=== PATIENT | female | born 1985 | race Caucasian/White ===

== ENCOUNTER 2016-09-13 22:32 | Emergency (ER) | payer SELFPAY ==
[~2016-09-13] VITALS: Ht 162.6 cm; Wt 54.5 kg
[~2016-09-13 22:32] MED LIST: BUTA1CAP39 PO; CIPR500T4 PO; FAMO-18 PO; IBUP800T25 PO; ONDA4TAB35 PO; SODI44SP11 NS; ZOF8 PO
[2016-09-13 22:33] VITALS: Ht 162.6 cm; Wt 54.5 kg
[2016-09-14] MEDS ORDERED: ALBUTEROL 0.5% (NEB) 2.5 MG/0.5 ML AMP HHN STA (00:25)
--- NOTE | 2016-09-14 00:27 | ERD ---
ER Documentation Chief Complaint Date/Time DATE: 09/14/16 TIME: 00:20 Chief Complaint cough congestion for past 5 days HPI 31 y/o female presents to ED for productive cough and congestion for less than a week. Also stated that she felt like she had a fever this morning but didn't take his temperature. Denies headache, loss of consciousness, dizziness, blurry vision, changes in vision, photophobia, facial pain, ear pain, throat pain, difficulty swallowing, neck pain, shoulder pain, chest pain, hemoptysis, abdominal pain, back pain, loss of appetite, nausea, vomiting, hematochezia, diarrhea, constipation, urinary symptoms, , the possibility of being , bladder and bowel incontinences, extremity weakness, extremity tenderness, numbness or tingling sensation, difficulty walking, recent travel, recent exposure to illness, recent antibiotic use in the last 3 months, chills. Allergy: NKA PMH: NKA Family medical history: NKA AO LMP: 08/25/2016 Medications: Denies Surgery: Denies Primary Social History: Denies Denies smoking, use of alcohol, use of illegal drugs. ROS All systems reviewed and are negative except as per history of present illness. Medications Home Meds Active Scripts Albuterol Sulfate* (Proair HFA*) 8.5 Gm Hfa.aer.ad, 2 PUFF INH Q4, #1 INHALER Prov:YARIEL SELF 09/14/16 Acetaminophen* (Tylophen*) 500 Mg Capsule, 1 CAP PO Q6H Y for PAIN AND OR ELEVATED TEMP, #20 CAP Prov:YARIEL SELF 09/14/16 Amoxicillin/Potassium Clav (Amox-Clav 875-125 mg Tablet) 875-125 mg Tab, 1 TAB PO BID for 7 Days, #14 TAB Prov:YARIEL SELF F 09/14/16 Ciprofloxacin Hcl* (Ciprofloxacin Hcl*) 500 Mg Tablet, 500 MG PO BID for 3 Days , TAB Prov:MUKUND GILL PA-C 10/24/15 Sodium Chloride (Saline Nasal [place]) 45 Ml [place], 2 SPR NS Q2H, #1 BOT Prov:JEANNIE SAWYER NP 07/12/15 Ibuprofen* (Motrin*) 800 Mg Tab, 800 MG PO Q6H Y for PAIN AND OR ELEVATED TEMP, #30 TAB Prov:JEANNIE SAWYER SPORTS MANAGEMENT PROFESSOR 07/12/15 Ondansetron Hcl* (Zofran* ODT) 4 mg -ODT Tab.disper, 4 MG PO Q6 Y for NAUSEA AND /OR VOMITING, #10 TAB Prov:SILVERIOJEANNIE Michelle Rasheeda. SPORTS MANAGEMENT PROFESSOR 07/12/15 Augccjczueaud-Jxqhrggzab-Vphqdcdc-Codeine* (Fioricet w/ Codeine*) [id number]- 30MG Capsule, 1 CAP PO Q6H Y for PAIN LEVEL 1-5, #10 CAP Prov:SILVERIOJEANNIE Rasheeda. SPORTS MANAGEMENT PROFESSOR 07/12/15 Ondansetron Hcl* (Zofran* ODT) 8 mg -ODT Tab.disper, 8 MG PO Q6 Y for NAUSEA AND /OR VOMITING, #14 TAB Prov:MUKUND GILL PA-C 01/25/15 Xtujfwkcvzgcz-Hqyvkjfgbt-Czuoqvyh-Codeine* (Fioricet w/ Codeine*) [id number]- 30MG Capsule, 1 CAP PO Q6H Y for PAIN LEVEL 1-5, #14 CAP Prov:MUKUND GILL PA-C 01/25/15 Reported Medications Famotidine* (Pepcid*) 20 Mg Tablet, 20 MG PO DAILY, TAB 04/22/14 Allergies Allergies: Coded Allergies: No Known Drug Allergy (Verified Allergy, Unknown, 06/02/14) PMhx/Soc Medical and Surgical Hx: pt denies Medical Hx, pt denies Surgical Hx History of Surgery: No Anesthesia Reaction: No Hx Neurological Disorder: No Hx Respiratory Disorders: No Hx Cardiac Disorders: No Hx Psychiatric Problems: No Hx Miscellaneous Medical Probl: No Hx Alcohol Use: No Hx Substance Use: No Hx Tobacco Use: No Smoking Status: Never smoker Physical Exam Vitals Vital Signs Date Time Temp Pulse Resp B/P Pulse Ox O2 Delivery O2 Flow Rate FiO2 09/14/16 01:26 99.8 101 20 119/81 98 Room Air 09/14/16 00:42 85 18 98 21 09/13/16 22:33 99.2 99 18 132/80 99 Physical Exam CONSTITUTIONAL: Well-appearing; well-nourished; in no apparent distress. HEAD: Normocephalic; atraumatic. EYES: Conjunctiva clear, sclera non-icteric, EOM intact. PERRL Ears: Hearing intact. EACs clear, TMs non-bulging, non-inflamed, translucent & mobile, ossicles normal appearance, No obstructions, no erythema, no discharges Nose: No obstructions. No polyps. No external lesions. Mucosa non-inflamed. No external lesions, septum and turbinates normal. No rhinorrhea. No discharges. Frontal sinus is tender to palpation. Maxillary sinus is tender to palpation. MOUTH: Moist mucous membranes, no lesion, no obstructions, no vesicles, no thrush, patent airway Throat: Uvula in midline. Right tonsil is +2 with erythema, no exudate. Left tonsil is +2 with erythema, no exudate. Tolerating secretions well. Good gag reflex. Patent airway. Neck: Supple, without lesions, bruits, or adenopathy. No mass. Thyroid non- enlarged and non-tender to palpation. CHEST: Symmetrical chest. Respirations even and not labored. No retractions noted. CARDIOVASCULAR: Normal S1, S2. RRR. No murmurs, gallops. RESPIRATORY: Normal chest excursion with respiration; breath sounds clear and equal bilaterally; no wheezes, rhonchi, or rales. Breathing even and unlabored. Speaking in clear, full, and complete sentences w/ ease. ABDOMEN: Normal bowel sounds normal. Soft, round, non-distended, non-guarding, no tenderness, no rebound, no organomegaly, no masses, no pulsating abdominal mass. No hernia. No peritoneal signs. : No CVA tenderness. BACK: Symmetrical shoulder. Spine is midline without deformity, tenderness. No evidence of trauma or deformity. PELVIS: Stable pelvis. No evidence of trauma or deformity. MUSCULOSKELETAL: Normal gait and station. No misalignment, asymmetry, crepitation, defects, tenderness, masses, effusions, decreased range of motion, instability, atrophy or abnormal strength or tone in the head, neck, spine, ribs , pelvis or extremities. No calf tenderness. NEUROVASCULAR: Distal pulses are present. Pedal pulse are present, equal, and normal. Capillary refills are < 2 seconds. NEUROLOGIC: Alert and oriented x4. Speaks full and clear sentences. Cranial Nerves II-XII normal. Sensation to pain, touch, and proprioception normal. Grossly unremarkable. No neurologic deficits. Romberg test is negative. PSYCHOLOGICAL: The patients mood and manner are appropriate. No hallucinations , delusions. Not SI. Not HI. Has the capacity to decide for self SKIN: Normal for age and ethnicity; warm; dry; good turgor; no apparent lesions or exudates. No rashes, hives, discoloration. Intact. Results 24 hrs Current Medications Medications (Trade) Dose Ordered Sig/Amanda Route PRN Reason Start Time Stop Time Status Last Admin Dose Admin Acetaminophen (Tylenol Tab) 650 mg ONCE ONCE PO 09/14/16 00:30 09/14/16 00:31 DC 09/14/16 00:35 Albuterol (Proventil 0.5% (Neb)) 5 mg ONCE STAT HHN 09/14/16 00:25 09/14/16 00:27 DC 09/14/16 00:42 Ipratropium [place] (Atrovent 0.02% (Neb)) 0.5 mg ONCE ONCE HHN 09/14/16 00:30 09/14/16 00:31 DC 09/14/16 00:42 Procedures/MDM Examination: Please see physical examination. Treatment: Tylenol. Albuterol and Atrovent. Re-evaluation: Breathing has improved. Lung sounds are clear to auscultation. Consultation: None Differential diagnosis: PNA versus bronchitis versus sinusitis Medical decision makin31 y/o female presents to ED for productive cough and congestion for less than a week. Also stated that she felt like she had a fever this morning but didn't take his temperature. Patient's complain, my physical finding are consistent with my final diagnosis of acute bronchitis and sinusitis. Medications prescribed are the following: Augmentin. Pro-air MDI. Tylenol. Patient and family member are made aware of the side effects and adverse reactions of the medications prescribed. Instructed on when to seek emergent and medical attention in case allergic/anaphylactic reactions or severe side effects and or adverse reactions to medications. Patient and family member verbalized understanding. Patient instructed Instructed to follow-up with his PCP in 24-48 hours. Verbalized understanding and agreed with follow-up care. Instructed to Call 911 for chest pain, shortness of breath. Advised to come back here in ED as soon as possible for severity of symptoms which includes but not limited to: any new symptoms; shortness of breath/difficulty of breathing; cardiovascular changes; severe gastrointestinal symptoms; signs and symptoms of bleeding and or infection; signs of compartment syndrome/neurovascular changes; neurological changes/deficits. Patient and family member verbalized understanding. Upon discharge, patient is alert and oriented x 4, speaks full and clear sentences, denies pain, has no neurological deficits, has no neurovascular deficits, difficulty of breathing. Breathing even and unlabored. Lung sounds are clear to auscultation. Not in distress. Appears comfortable. Ambulatory with steady gait. Appears satisfied with care provided here in ED. Departure Diagnosis: Primary Impression: Bronchitis Additional Impressions: Sinusitis, acute frontal Recurrence: not specified as recurrent Qualified Code: J01.10 - Acute frontal sinusitis, recurrence not specified Sinusitis, acute maxillary Recurrence: not specified as recurrent Qualified Code: J01.00 - Acute maxillary sinusitis, recurrence not specified Condition: Good Additional Instructions: Follow-up with PCP in the next 24-48 hours. Patient verbalized understanding. Patient agreed with follow-up care. YARIEL SELF Sep 14, 2016 00:27
[2016-09-14] MEDS ORDERED: ACETAMINOPHEN 325 MG TAB PO ONE (00:30)
[2016-09-14] MEDS ORDERED: IPRATROPIUM (NEB) 0.5 MG/2.5 ML AMP HHN ONE (00:30)
[2016-09-14] MEDS ORDERED: AMOX1TAB10 PO (01:13)
[2016-09-14] MEDS ORDERED: ALBU8.5H3 INH (01:13)
[2016-09-14] MEDS ORDERED: ACET500C5 PO (01:13)
[2016-09-14 01:26] VITALS: BP 119/81; PULSE 101; RESP 20; TEMP 99.8
== END 2016-09-14 01:28 | disposition home or self-care (01) ==
LOC: FTE 22:32
DX: J20.9 Acute bronchitis, unspecified (principal); J01.10 Acute frontal sinusitis, unspecified; J01.00 Acute maxillary sinusitis, unspecified
CPT/HCPCS: 94664

== ENCOUNTER 2016-12-23 08:53 | Emergency (ER) | payer MEDICAID ==
[~2016-12-23] VITALS: Ht 162.6 cm; Wt 55.5 kg
[~2016-12-23 08:53] MED LIST changes: +ACET500C5 PO; +ALBU8.5H3 INH; +AMOX1TAB10 PO
[2016-12-23 09:04] VITALS: Ht 162.6 cm; Wt 55.5 kg
[2016-12-23] MEDS ORDERED: SOD CHLORIDE 0.9% 1,000 ML IV STA (09:19)
[2016-12-23] MEDS ORDERED: morphine 4 MG/ML VIAL IV STA (09:19)
[2016-12-23] MEDS ORDERED: ONDANSETRON 4 MG INJ IV STA (09:19)
--- NOTE | 2016-12-23 09:28 | ERD ---
ER Documentation Chief Complaint Date/Time DATE: 12/23/16 TIME: 09:23 Chief Complaint RIGHT SIDE AP W/NAUSEA X4 DAYS HPI This is a 31-year-old female presenting to the emergency department complaining of right sided abdominal pain that radiates to the left abdomen for the past 4 days. States it is mostly in the right lower quadrant. Patient states the pain is intermittent, rating it 8-10 out of 10. She admits to having associated nausea with it, she states that eating makes it worse. Denies fevers patient denies any vomiting, diarrhea. She states her last bowel movement was yesterday normal. Patient has tried [place] and ibuprofen yesterday without any relief. She denies taking any medications today. She states her last menstrual period was couple weeks ago. Patient states that she was seen at [facility] a year ago and they have told her that she had a hematoma on her liver. She denies any surgeries. ROS All systems reviewed and are negative except as per history of present illness. Medications Home Meds Active Scripts Ondansetron (Ondansetron Odt) 4 Mg Tab.rapdis, 4 MG PO Q6H Y for NAUSEA AND/OR VOMITING, #10 TAB Prov:ELENA NUGENT PA-C 12/23/16 Ibuprofen* (Ibuprofen*) 400 Mg Tablet, 400 MG PO Q6H Y for PAIN, #30 TAB Prov:ELENA NUGENT PA-C 12/23/16 Famotidine* (Famotidine*) 20 Mg Tablet, 20 MG PO DAILY, #14 TAB Prov:ELENA NUGENT PA-C 12/23/16 Albuterol Sulfate* (Proair HFA*) 8.5 Gm Hfa.aer.ad, 2 PUFF INH Q4, #1 INHALER Prov:YARIEL SELF 09/14/16 Acetaminophen* (Tylophen*) 500 Mg Capsule, 1 CAP PO Q6H Y for PAIN AND OR ELEVATED TEMP, #20 CAP Prov:YARIEL SELF 09/14/16 Amoxicillin/Potassium Clav (Amox-Clav 875-125 mg Tablet) 875-125 mg Tab, 1 TAB PO BID for 7 Days, #14 TAB Prov:YARIEL SELF 09/14/16 Ciprofloxacin Hcl* (Ciprofloxacin Hcl*) 500 Mg Tablet, 500 MG PO BID for 3 Days , TAB Prov:MUKUND GILL PA-C 10/24/15 Sodium Chloride (Saline Nasal [place]) 45 Ml [place], 2 SPR NS Q2H, #1 BOT Prov:JEANNIE SAWYER REAL ESTATE INVESTOR 07/12/15 Ibuprofen* (Motrin*) 800 Mg Tab, 800 MG PO Q6H Y for PAIN AND OR ELEVATED TEMP, #30 TAB Prov:JEANNIE SAWYER NP 07/12/15 Ondansetron Hcl* (Zofran* ODT) 4 mg -ODT Tab.disper, 4 MG PO Q6 Y for NAUSEA AND /OR VOMITING, #10 TAB Prov:JEANNIE SAWYER NP 07/12/15 Csbnxdjgukbvi-Ktoevybkty-Gjhjvveg-Codeine* (Fioricet w/ Codeine*) [id number]- 30MG Capsule, 1 CAP PO Q6H Y for PAIN LEVEL 1-5, #10 CAP Prov:JEANNIE SAWYER NP 07/12/15 Ondansetron Hcl* (Zofran* ODT) 8 mg -ODT Tab.disper, 8 MG PO Q6 Y for NAUSEA AND /OR VOMITING, #14 TAB Prov:MUKUND GILL PA-C 01/25/15 Onwiypnegzyky-Xwwiebldyg-Ziujboiy-Codeine* (Fioricet w/ Codeine*) [id number]- 30MG Capsule, 1 CAP PO Q6H Y for PAIN LEVEL 1-5, #14 CAP Prov:MUKUND GILL PA-C 01/25/15 Reported Medications Famotidine* (Pepcid*) 20 Mg Tablet, 20 MG PO DAILY, TAB 04/22/14 Allergies Allergies: Coded Allergies: No Known Drug Allergy (Verified Allergy, Unknown, 06/02/14) PMhx/Soc Medical and Surgical Hx: pt denies Medical Hx, pt denies Surgical Hx History of Surgery: No Anesthesia Reaction: No Hx Neurological Disorder: No Hx Respiratory Disorders: No Hx Cardiac Disorders: No Hx Psychiatric Problems: No Hx Miscellaneous Medical Probl: No Hx Alcohol Use: No Hx Substance Use: No Hx Tobacco Use: No Physical Exam Vitals Vital Signs Date Time Temp Pulse Resp B/P Pulse Ox O2 Delivery O2 Flow Rate FiO2 12/23/16 09:04 98.1 77 20 112/67 99 Physical Exam GENERAL: well-developed/well-nourished, in no apparent distress, non-toxic appearing HENT: NC/AT, moist mucous membranes EYES: Conjunctiva normal NECK: Supple, no lymphadenopathy PULM: CTA bilaterally, no rales, rhonchi, or wheezing heard CV: Normal S1S2, RRR, good capillary refill GI: Soft, non-distended, tender to palpation in right lower quadrant, tender palpation all quadrants, patient was tearful when I palpated her abdomen Normal bowel sounds, no masses or organomegaly felt on exam No gross peritonitis, no bruits Negative Rovsing, negative Gasca, + McBurney's point, Negative CVAT BACK: No masses EXT: No clubbing, cyanosis, or edema NEURO: Alert and Orientated SKIN: Intact, normal turgor PSYCH: Normal mood and mentation Result Diagram: 12/23/1692412/23/1625 Results 24 hrs Laboratory Tests Test 12/23/16 09:20 12/23/16 09:25 Urine Color LT. YELLOW Urine Clarity CLEAR Urine pH 6.0 Urine Specific [place] 1.015 Urine Ketones NEGATIVE Urine Nitrite NEGATIVE Urine Bilirubin NEGATIVE Urine Urobilinogen 0.2 E.U./dL Urine Leukocyte Esterase NEGATIVE Urine Hemoglobin NEGATIVE Urine Glucose NEGATIVE% Urine Total Protein NEGATIVE White Blood Count 7.110^3/ul Red Blood Count 5.0210^6/ul Hemoglobin 13.9g/dl Hematocrit 43.5% Mean Corpuscular Volume 86.7fl Mean Corpuscular Hemoglobin 27.7pg Mean Corpuscular Hemoglobin Concent 32.0g/dl Red Cell Distribution Width 13.2% Platelet Count 44980^3/UL Mean Platelet Volume 9.1fl Neutrophils % 61.0% Lymphocytes % 30.1% Monocytes % 5.1% Eosinophils % 3.1% Basophils % 0.4% Nucleated Red Blood Cells % 0.0/100WBC Neutrophils # 4.310^3/ul Lymphocytes # 2.110^3/ul Monocytes # 0.410^3/ul Eosinophils # 0.210^3/ul Basophils # 0.010^3/ul Nucleated Red Blood Cells # 0.010^3/ul Sodium Level 142mmol/L Potassium Level 3.9mmol/L Chloride Level 105mmol/L Carbon Dioxide Level 28mmol/L Anion Gap 13 Blood Urea Nitrogen 11mg/dl Creatinine 0.66mg/dl Glucose Level 83mg/dl Calcium Level 9.2mg/dl Total Bilirubin 0.2mg/dl Direct Bilirubin 0.00mg/dl Indirect Bilirubin 0.2mg/dl Aspartate Amino Transf (AST/SGOT) 26IU/L Alanine Aminotransferase (ALT/SGPT) 43IU/L Alkaline Phosphatase 77IU/L Total Protein 7.8g/dl Albumin 4.7g/dl Globulin 3.10g/dl Albumin/Globulin Ratio 1.51 Lipase 65U/L Current Medications Medications (Trade) Dose Ordered Sig/Amanda Route PRN Reason Start Time Stop Time Status Last Admin Dose Admin Sodium Chloride (NS) 1,000 ml @ 1,000 mls/hr Q1H STAT IV 12/23/16 09:19 12/23/16 10:18 DC 12/23/16 09:46 Morphine Sulfate (morphine) 4 mg ONCE STAT IV 12/23/16 09:19 12/23/16 09:21 DC 12/23/16 09:45 Ondansetron HCl (Zofran Inj) 4 mg ONCE STAT IV 12/23/16 09:19 12/23/16 09:21 DC 12/23/16 09:45 Procedures/MDM This is a 31-year-old female presenting to the emergency department complaining of right sided abdominal pain that radiates to the left abdomen associated with nausea for the past 4 days. Differentials include but not limited to gastritis , liver masses, gastroenteritis, ovarian cyst. IV access is established. Lab work was drawn. CBC did not show any evidence of leukocytosis or anemia. CMP did not show any evidence of renal, liver, or electrolyte abnormalities. Lipase was normal. UA did not show any evidence of hemoglobin or urinary tract infection. Ultrasound of the gallbladder did not reveal any cholelithiasis. CT of the abdomen and pelvis was done and there is a liver mass which has been noted on patient's last CT a year ago, it recommends for her to do an MRI and CT triple phase of the liver . This can be done as an outpatient. Patient's pain has been stabilized in the ED. She is stable for discharge for home with close follow-up with the primary care physician. I discussed with her to return to the ER for any worsening sinus symptoms. She understands and agrees with this plan Gallbladder ultrasound: 3.7 cm soft tissue mass in the right lobe of the liver, previously measured 3.[address] from 2016. Further characterization with a triple phase liver CT is recommended. No evidence of gallstones. Right kidney not visualized. CT abd pelvis without contrast: Slightly enlarging incomplete characterized hypodense mass in the right lobe of the liver. Differential diagnosis includes hemangioma, hepatic adenoma, SMA each, hepatoma, among other possibilities. Further evaluation with an MRI of the liver or CT triple phase is recommended. Tiny subpleural nodule in the right lower lobe of the lung. Possible right ovarian cyst . Small cystic structure in the left lower quadrant may be related to the left ovary. Markedly atrophic right kidney with compensatory hypertrophy of the left kidney. Departure Diagnosis: Primary Impression: Abdominal pain Additional Impressions: Right ovarian cyst Nausea Condition: Stable ELENA NUGENT PA-C Dec 23, 2016 09:28
[2016-12-23 09:47] LABS: ADD SCAN DIFF NO
[2016-12-23 09:49] LABS: BASOPHILS % 0.4 % (0.0-2.0); EOSINOPHILS # 0.2 10^3/ul (0.0-0.5); EOSINOPHILS % 3.1 % (0.0-7.0); HEMATOCRIT 43.5 % (37.0-47.0); HEMOGLOBIN 13.9 g/dl (12.0-16.0); LYMPHOCYTES # 2.1 10^3/ul (0.8-2.9); LYMPHOCYTES % 30.1 % (15.0-51.0); MEAN CORPUSCULAR HEMOGLOBIN 27.7 pg (29.0-33.0); MEAN CORPUSCULAR VOLUME 86.7 fl (82.0-101.0); MEAN PLATELET VOLUME 9.1 fl (7.4-10.4); MONOCYTE # 0.4 10^3/ul (0.3-0.9); MONOCYTES % 5.1 % (0.0-11.0); NEUTROPHIL # 4.3 10^3/ul (1.6-7.5); PLATELET COUNT 258 10^3/UL (140-415); RED BLOOD COUNT 5.02 10^6/ul (4.20-5.40); RED CELL DISTRIBUTION WIDTH 13.2 % (11.5-14.5); WHITE BLOOD COUNT 7.1 10^3/ul (4.8-10.8)
[2016-12-23 09:56] LABS: ADD UMIC NO; URINE BILIRUBIN (Dip) NEGATIVE (NEGATIVE); URINE BLOOD (Dip) NEGATIVE (NEGATIVE); URINE COLOR LT. YELLOW (YELLOW); URINE GLUCOSE (Dip) NEGATIVE (NEGATIVE); URINE KETONES (Dip) NEGATIVE (NEGATIVE); URINE LEUKOCYTE ESTERASE (Dip) NEGATIVE (NEGATIVE); URINE NITRITE (Dip) NEGATIVE (NEGATIVE); URINE TOTAL PROTEIN (Dip) NEGATIVE (NEGATIVE); URINE UROBILINOGEN (Dip) 0.2 E.U./dL (0.1-1.0)
[2016-12-23 10:13] LABS: ALBUMIN 4.7 g/dl (3.3-4.9); ALBUMIN/GLOBULIN RATIO 1.51; BILIRUBIN,INDIRECT 0.2 mg/dl (0-1.1); BILIRUBIN,TOTAL 0.2 mg/dl (0.2-1.3); CALCIUM 9.2 mg/dl (8.4-10.2); CREATININE 0.66 mg/dl (0.44-1.00); POTASSIUM 3.9 mmol/L (3.5-5.1); TOTAL PROTEIN 7.8 g/dl (6.1-8.1)
--- NOTE | 2016-12-23 10:31 | RADRPT ---
PROCEDURE: US Abdomen. CLINICAL INDICATION: abdominal pain TECHNIQUE: Multiple real-time images were acquired of the patient's right upper quadrant abdomen a nd retroperitoneum utilizing a high resolution transducer. COMPARISON: 10/24/2015 FINDINGS: There is a large 3.8 x 3.1 cm complex echogenic mass in the right lobe of the liver with a hypoechoi c center. There is no significant increased vascularity within this mass. The liver is normal in size. The liver measures 15 cm in length. The portal vein is patent with norm al direction of flow. No intrahepatic biliary dilatation is seen. No gallstones are identified within the gallbladder. There is no pericholecystic fluid or gallbladd er wall thickening. The common bile duct measures 1.4 mm in maximal dimension. The visualized portions of the pancreas are unremarkable. The tail of the pancreas is not seen. No free fluid is identified. The right kidney is not visualized. RPTAT: AA IMPRESSION: 3.7 cm soft tissue mass in the right lobe of the liver, previously measured 3.[address] from 20 16. Further characterization with a triple phase liver CT is recommended. No evidence of gallstones. Right kidney not visualized. .Edwin Munoz MD, Date Time Electronically viewed and signed by .Edwin Munoz MD, MD on 12/23/2016 10:31 .S/
--- NOTE | 2016-12-23 11:06 | RADRPT ---
PROCEDURE: CT abdomen and pelvis without contrast. CLINICAL INDICATION: Abdominal pain TECHNIQUE: CT scan of the abdomen and pelvis without contrast was performed on the multislice CT s wooju . No intravenous contrast was administered. 3-D sagittal and coronal reformatted images wer e obtained from the axial source images. One or more of the following post reduction techniques were used: - Automated exposure control. - Adjustment of the mA and/or Kv according to patient's size. - Use of iterative reconstruction technique DLP 359 mGycm. CTDI vol 6.19 mGy COMPARISON: CT from 10/24/2015, ultrasound from same day FINDINGS: There is a 3 mm subpleural nodule in the right lower lobe. There is a tiny area of linear scarring in the left lower lobe. Evaluation of the solid organs is limited due to lack of intravenous contrast. There is a slightly enlarging hypodense mass in the right lobe of the liver measuring 4.2 x 3.2 cm i n the current study, compared to 4.0 cm in the prior study. There is no biliary ductal dilatation. The spleen, adrenal glands, pancreas, gallbladder are normal. There is marked atrophy of the right kidney with a tiny amount of residual renal parenchyma noted in the right flank. There is compensatory hypertrophy of the left kidney. There is no evidence of le ft-sided hydronephrosis or kidney stones. The aorta is normal in caliber and there is no ascites or retroperitoneal adenopathy. There is no bowel obstruction. There is a 2.3 cm simple cyst in the right ovary. There is a 1.3 cm cystic structure in the left lo wer quadrant which may be related to the left ovary, slightly increased in size when compared the pr ior study when it measured 1.1 cm. The urinary bladder is normal. No pelvic lymphadenopathy seen. There is no free fluid. The bony pelvis is intact. The appendix is normal. RPTAT: AA IMPRESSION: Slightly enlarging incomplete characterized hypodense mass in the right lobe of the liver. Differen tial diagnosis includes hemangioma, hepatic adenoma, SMA each, hepatoma, among other possibilities. Further evaluation with an MRI of the liver or CT triple phase is recommended. Tiny subpleural nodule in the right lower lobe of the lung. Possible right ovarian cyst . Small cystic structure in the left lower quadrant may be related to t he left ovary. Markedly atrophic right kidney with compensatory hypertrophy of the left kidney. .Edwin Munzo MD, MD Date Time Electronically viewed and signed by .Edwin Munoz MD, on 12/23/2016 11:06 .S/
[2016-12-23] MEDS ORDERED: FAMO20TA18 PO (11:13)
[2016-12-23] MEDS ORDERED: IBUP400T22 PO (11:13)
[2016-12-23] MEDS ORDERED: ONDA4TAB14 PO (11:17)
[2016-12-23 11:35] VITALS: BP 100/66; PULSE 87; RESP 16; TEMP 98.2
== END 2016-12-23 11:51 | disposition home or self-care (01) ==
LOC: FTE 08:53
DX: R10.31 Right lower quadrant pain (principal); R11.0 Nausea; N83.201 Unspecified ovarian cyst, right side
CPT/HCPCS: 74176; 76705; 80053; 81003; 83690; 85025; J2270; J2405; J7030; 36415; 96361; 96374; 96375

== ENCOUNTER 2017-07-14 22:37 | Emergency (ER) | payer SELFPAY ==
[~2017-07-14] VITALS: Ht 162.6 cm; Wt 55.4 kg
[~2017-07-14 22:37] MED LIST changes: -FAMO-18 PO; +FAMO-96 PO; +FAMO20TA18 PO; +IBUP400T22 PO; +ONDA4TAB14 PO
[2017-07-14 23:16] VITALS: Ht 162.6 cm; Wt 55.4 kg
== END 2017-07-15 15:23 | disposition left against medical advice (07) ==
LOC: FTE 22:37
DX: Z53.21 Procedure and treatment not carried out due to patient leaving prior to being seen by health care provider (principal)

== ENCOUNTER 2018-11-19 21:18 | Emergency (ER) | payer MEDICAID ==
[~2018-11-19] VITALS: Ht 157.5 cm; Wt 56.7 kg
[~2018-11-19 21:18] MED LIST changes: -ALBU8.5H3 INH; +ALBU8.5H8 INH; +IBUP-1541 PO; -IBUP400T22 PO; -IBUP800T25 PO; +IBUP800T48 PO
[2018-11-19 21:23] VITALS: Ht 157.5 cm; Wt 56.7 kg
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
[2018-11-19] MEDS ORDERED: METOCLOPRAMIDE 10 MG INJ IV STA (22:10)
[2018-11-19 22:28] VITALS: BP 115/93; PULSE 83; RESP 16
[2018-11-19] MEDS ORDERED: KETOROLAC 30 MG INJ IV STA (22:36)
[2018-11-19] MEDS ORDERED: DIPHENHYDRAMINE 50 MG INJ IV ONE (23:00)
[2018-11-20] MEDS ORDERED: ONDA4TAB8 PO (20:08)
[2018-11-20] MEDS ORDERED: ACET500C5 PO (20:08)
== END 2018-11-19 23:20 | disposition home or self-care (01) ==
LOC: E/R 21:18
DX: T59.91XA Toxic effect of unspecified gases, fumes and vapors, accidental (unintentional), initial encounter (principal)
CPT/HCPCS: 36415; 82803; 96374; 96375; J1200; J1885; J2765; Z7502

== ENCOUNTER 2018-11-20 17:59 | Emergency (ER) | payer MEDICAID ==
[~2018-11-20] VITALS: Wt 55.8 kg
[2018-11-20 18:09] VITALS: BP 120/83; PULSE 78; RESP 18
[2018-11-20] MEDS ORDERED: KETOROLAC 60 MG INJ IM STA (18:51)
[2018-11-20] MEDS ORDERED: ONDANSETRON (ODT) 4 MG TAB ODT STA (18:51)
[2018-11-20] MEDS ORDERED: ACET500C5 PO (20:08)
[2018-11-20] MEDS ORDERED: ONDA4TAB8 PO (20:08)
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
== END 2018-11-20 20:17 | disposition home or self-care (01) ==
LOC: FTE 17:59
DX: T58.91XA Toxic effect of carbon monoxide from unspecified source, accidental (unintentional), initial encounter (principal); F17.210 Nicotine dependence, cigarettes, uncomplicated
CPT/HCPCS: 36415; 81025; 82803; 96372; J1885; Z7502; Z7610

== ENCOUNTER 2019-01-22 14:28 | Emergency (ER) | payer MEDICAID ==
[~2019-01-22] VITALS: Ht 152.4 cm; Wt 57.1 kg
[~2019-01-22 14:28] MED LIST changes: -ALBU8.5H8 INH; -AMOX1TAB10 PO; -BUTA1CAP39 PO; -CIPR500T4 PO; -FAMO-96 PO; -FAMO20TA18 PO; -IBUP-1541 PO; -IBUP800T48 PO; -ONDA4TAB14 PO; -ONDA4TAB35 PO; +ONDA4TAB8 PO; -SODI44SP11 NS; -ZOF8 PO
[2019-01-22 14:32] VITALS: BP 130/74; PULSE 93; RESP 20; Ht 152.4 cm; Wt 57.1 kg
[2019-01-22] MEDS ORDERED: ONDANSETRON 4 MG INJ IV STA (15:07)
[2019-01-22] MEDS ORDERED: SOD CHLORIDE 0.9% 1,000 ML IV STA (15:07)
[2019-01-22] MEDS ORDERED: KETOROLAC 30 MG INJ IV STA (15:07)
[2019-01-22] MEDS ORDERED: ACET/BUTAL/CAFF TAB PO ONE (16:00)
[2019-01-22] MEDS ORDERED: METOCLOPRAMIDE 10 MG INJ IV ONE (17:00)
[2019-01-22] MEDS ORDERED: LORAZEPAM 1 MG TAB PO ONE (17:00)
[2019-01-22] MEDS ORDERED: METO10TA92 PO (17:26)
[2019-01-22] MEDS ORDERED: IBUP-1542 PO (17:27)
[2019-01-22] MEDS ORDERED: BUTA1CAP38 PO (17:27)
--- NOTE | 2019-01-22 17:28 | ERD ---
ER Documentation Chief Complaint Chief Complaint GOLDSTEIN, [place] x2d. GOLDSTEIN history. no relief 500mg tylenol @0700 HPI 34 year old females presents to the ED complaining of N/V and GOLDSTEIN x 2 days. She reports her GOLDSTEIN is located all around her head but worse in the front region of her head. She denies any head trauma or falls. She denies having a GOLDSTEIN this bad before in her life. She states the pain is 10/10 and constant, sharp. She has tried Tylenol with no relief. Nothing makes it better or worse. In addition, she states she felt like she had a "panic attack" earlier. In addition, she states N/V but denies diarrhea, abd pain. She states that she is using the bathroom appropriately but has a decreased appetite. She has not taken any medication for her N/V. In demand application was used for interpretation. ROS All systems reviewed and are negative except as per history of present illness. Medications Home Meds Active Scripts Ibuprofen* (Motrin*) 600 Mg Tab, 600 MG PO Q6H PRN for PAIN AND OR ELEVATED TEMP, #30 TAB Prov:COLT ROSARIO PA-C 01/22/19 Qezozwsety-Klbymumvexflx-Cwpmohrx* (Fioricet*) 50-300-40 Mg Capsule, 1 CAP PO Q4H PRN for HEADACHE, #14 CAP Prov:COLT ROSARIO PA-C 01/22/19 Metoclopramide* (Reglan*) 10 Mg Tablet, 10 MG PO Q6 PRN for NAUSEA AND/OR VOMITING, #10 TAB Prov:COLT ROSARIO PA-C 01/22/19 Acetaminophen* (Tylophen*) 500 Mg Capsule, 2 CAP PO Q8H PRN for PAIN AND OR ELEVATED TEMP, #20 CAP Prov:YUE SCHUSTER NP 11/20/18 Ondansetron Hcl* (Zofran*) 4 Mg Tablet, 4 MG PO Q6H for NAUSEA AND/OR VOMITING, #30 TAB Prov:YUE SCHUSTER V [employer]ED [employer] 11/20/18 Allergies Allergies: Coded Allergies: No Known Drug Allergy (Verified Allergy, Unknown, 11/19/18) PMhx/Soc Medical and Surgical Hx: pt denies Medical Hx, pt denies Surgical Hx History of Surgery: No Anesthesia Reaction: No Hx Neurological Disorder: No Hx Respiratory Disorders: No Hx Cardiac Disorders: No Hx Psychiatric Problems: No Hx Miscellaneous Medical Probl: No Hx Alcohol Use: Yes (socially) Hx Substance Use: No Hx Tobacco Use: No Smoking Status: Never smoker FmHx Family History: No diabetes Physical Exam Vitals Vital Signs Date Temp Pulse Resp B/P (MAP) Pulse Ox O2 O2 Flow FiO2 Time Delivery Rate 01/22/19 100.6 93 20 130/74 98 14:32 (92) Physical Exam Const: In acute distress, uncomfortable Head: Atraumatic, Tenderness to frontal region of head Eyes: Normal Conjunctiva, PERRLA ENT: Normal External Ears, Nose and Mouth. Inner mouth: slightly dry mucosa, pink Neck: Full range of motion. No meningismus. Resp: Clear to auscultation bilaterally Cardio: Regular rate and rhythm, Abd: Soft, non tender, non distended. Normal bowel sounds Skin: No petechiae or rashes Back: No midline or flank tenderness Ext: No cyanosis, or edema Neur: Awake and alert, CN 2-12 intact, no pronator drift, able to follow commands, normal foot flutter, equal strength and sensation bilat Psych: Normal Mood and Affect Result Diagram: 01/22/19 1515 01/22/19 1515 Results 24 hrs Laboratory Tests Test 01/22/19 15:15 01/22/19 15:21 White Blood Count 9.1 10^3/ul Red Blood Count 4.99 10^6/ul Hemoglobin 13.8 g/dl Hematocrit 41.3 % Mean Corpuscular Volume 82.8 fl Mean Corpuscular Hemoglobin 27.7 pg Mean Corpuscular Hemoglobin Concent 33.4 g/dl Red Cell Distribution Width 13.0 % Platelet Count 212 10^3/UL Mean Platelet Volume 8.6 fl Immature Granulocytes % 0.300 % Neutrophils % 71.5 % Lymphocytes % 20.1 % Monocytes % 7.8 % Eosinophils % 0.1 % Basophils % 0.2 % Nucleated Red Blood Cells % 0.0 /100WBC Immature Granulocytes # 0.030 10^3/ul Neutrophils # 6.5 10^3/ul Lymphocytes # 1.8 10^3/ul Monocytes # 0.7 10^3/ul Eosinophils # 0.0 10^3/ul Basophils # 0.0 10^3/ul Nucleated Red Blood Cells # 0.0 10^3/ul Urine Color YELLOW Urine Clarity SLIGHTLY CLOUDY Urine pH 6.0 Urine Specific [place] 1.020 Urine Ketones 1+ mg/dL Urine Nitrite NEGATIVE mg/dL Urine Bilirubin NEGATIVE mg/dL Urine Urobilinogen NEGATIVE mg/dL Urine Leukocyte Esterase NEGATIVE Yazmin/ul Urine Microscopic RBC 0 /HPF Urine Microscopic WBC 4 /HPF Urine Squamous Epithelial Cells MANY /HPF Urine Bacteria FEW /HPF Urine Mucus FEW /HPF Urine Hemoglobin NEGATIVE mg/dL Urine Glucose NEGATIVE mg/dL Urine Total Protein NEGATIVE mg/dl Sodium Level 136 mmol/L Potassium Level 3.6 mmol/L Chloride Level 100 mmol/L Carbon Dioxide Level 26 mmol/L Anion Gap 10 Blood Urea Nitrogen 13 mg/dl Creatinine 0.71 mg/dl Est Glomerular Filtrat Rate mL/min > 60 mL/min Glucose Level 117 mg/dl Calcium Level 9.3 mg/dl Total Bilirubin 1.0 mg/dl Direct Bilirubin 0.00 mg/dl Indirect Bilirubin 1.0 mg/dl Aspartate Amino Transf (AST/SGOT) 22 IU/L Alanine Aminotransferase (ALT/SGPT) 27 IU/L Alkaline Phosphatase 67 IU/L Total Protein 8.0 g/dl Albumin 4.5 g/dl Globulin 3.50 g/dl Albumin/Globulin Ratio 1.28 Lipase 52 U/L POC Beta HCG, Qualitative NEGATIVE Current Medications Medications Dose Sig/Amanda Start Time Status Last (Trade) Ordered Route PRN Stop Time Admin Dose Reason Admin Sodium 1,000 ml @ Q1H STAT 01/22/19 DC 01/22/19 Chloride 1,000 mls/hr IV 15:07 01/22/19 15:19 16:06 Ondansetron 4 mg ONCE STAT 01/22/19 DC 01/22/19 HCl (Zofran IV 15:07 01/22/19 15:20 Inj) 15:10 Ketorolac 30 mg ONCE STAT 01/22/19 DC 01/22/19 Tromethamine IV 15:07 01/22/19 15:22 (Toradol) 15:10 1 tab ONCE ONCE 01/22/19 DC 01/22/19 Acetaminophen PO 16:00 01/22/19 16:31 / 16:01 Butalbital/ Caffeine (Fioricet) Lorazepam 1 mg ONCE ONCE 01/22/19 DC 01/22/19 (Ativan) PO 17:00 01/22/19 16:41 17:01 10 mg ONCE ONCE 01/22/19 DC 01/22/19 Metoclopramid IV 17:00 01/22/19 17:03 e HCl 17:01 (Reglan) Procedures/MDM ED COURSE: The patient was stable throughout ED course. I kept the patient informed of laboratory and diagnostic imaging results throughout the ED course. DIAGNOSTIC IMAGING: none PROCEDURES: IV fluids MEDICATIONS GIVEN: zofran, reglan, Ativan, Toradol, Fiorcet Patient tolerated medication well with no adverse reactions. Patient reported improvement in pain. MEDICAL DECISION MAKING: Patient is a 34 year old female presenting with N/V and GOLDSTEIN x 2 days. On Physical exam, she looks uncomfortable and in acute distress. She is tearing from her eyes. Physical exam showed tenderness to the frontal region of her head but was otherwise unremarkable. Neuro exam was WNL. Normal Saline was given with Zofran and Reglan was given to help with her N/V which improved her symptoms. However her GOLDSTEIN was not improving with Toradol. She was then given Fiorcet and Ativan. After checking on the patient afterwards, she stated that she felt much better and she wanted to sleep. She wanted to get d/c so she could sleep at home and be more comfortable. She was given strict return to ED precautions to return if symptoms worsen or persist. I have low suspicion for Subarachnoid hemorrhage, acute vertebral or carotid dissection, intracranial mass, epidural hematoma, subdural hematoma, dural venous sinus thrombosis, giant cell arteritis, pseudotumor cerebri, meningitis, mass, intracranial bleed Vital signs were reviewed. Patient is afebrile. Patient was not hypoxic. Patient was hemodynamically stable. Patient was told to follow up with primary care for further care and management. PRESCRIPTION: Fiorcet, motrin, Reglan DISCHARGE: At this time, patient is stable for discharge and outpatient management. I have instructed the patient to follow-up with his/her primary care physician in 1-2 days. I have discussed with the patient the possibility of needing to see a specialist for further workup and imaging studies if symptoms persist. I have instructed the patient to promptly return to the ER for any new or worsening symptoms including increased pain, fever, nausea, vomiting, weakness or LOC. The patient expressed understanding of and agreement with this plan. All questions were answered. Home care instructions were provided. Disclaimer: Inadvertent spelling and grammatical errors are likely due to EHR/dictation software use and do not reflect on the overall quality of patient care. Also, please note that the electronic time recorded on this note does not necessarily reflect the actual time of the patient encounter. Departure Diagnosis: Primary Impression: Nausea and vomiting Vomiting type: unspecified Vomiting Intractability: unspecified Qualified Codes: R11.2 - Nausea with vomiting, unspecified Additional Impression: Headache Headache type: unspecified Headache chronicity pattern: episodic headache Intractability: intractable Qualified Codes: R51 - Headache Condition: Fair Patient Instructions: Self-Care for Headaches, Nausea and Vomiting-Adult Referrals: [facility] YOU HAVE RECEIVED A MEDICAL SCREENING EXAM AND THE RESULTS INDICATE THAT YOU DO NOT HAVE A CONDITION THAT REQUIRES URGENT TREATMENT IN THE EMERGENCY DEPARTMENT. FURTHER EVALUATION AND TREATMENT OF YOUR CONDITION CAN WAIT UNTIL YOU ARE SEEN IN YOUR DOCTORS OFFICE WITHIN THE NEXT 1-2 DAYS. IT IS YOUR RESPONSIBILITY TO MAKE AN APPOINTMENT FOR FOLOW-UP CARE. IF YOU HAVE A PRIMARY DOCTOR --you should call your primary doctor and schedule an appointment IF YOU DO NOT HAVE A PRIMARY DOCTOR YOU CAN CALL OUR PHYSICIAN REFERRAL HOTLINE AT IF YOU CAN NOT AFFORD TO SEE A PHYSICIAN YOU CAN CHOSE FROM THE FOLLOWING [facility] [address] [facility]. [facility] [address] [facility]. [facility] [address] [facility] [facility] [address] [facility] [facility] [address] [facility]. [facility]. [address] [facility]. [facility] YOU HAVE RECEIVED A MEDICAL SCREENING EXAM AND THE RESULTS INDICATE THAT YOU DO NOT HAVE A CONDITION THAT REQUIRES URGENT TREATMENT IN THE EMERGENCY DEPARTMENT. FURTHER EVALUATION AND TREATMENT OF YOUR CONDITION CAN WAIT UNTIL YOU ARE SEEN IN YOUR DOCTORS OFFICE WITHIN THE NEXT 1-2 DAYS. IT IS YOUR RESPONSIBILITY TO MAKE AN APPOINTMENT FOR FOLOW-UP CARE. IF YOU HAVE A PRIMARY DOCTOR --you should call your primary doctor and schedule and appointment IF YOU DO NOT HAVE A PRIMARY DOCTOR YOU CAN CALL OUR PHYSICIAN REFERRAL HOTLINE AT . IF YOU CAN NOT AFFORD TO SEE A PHYSICIAN YOU CAN CHOSE FROM THE FOLLOWING [facility] INSTITUTIONS: [facility] [address] [place] [address] [facility] [address] [place] [address] [facility] [address] [place] [address] Additional Instructions: Llame al doctor MAANA y dinorah angelo JANET PARA DENTRO DE 1-2 FARLEY.Dgale a la secretaria que nosotros le instruimos hacer esta janet.Avise o llame si maurice condicin se empeora antes de la janet. Regresa aqui si peor o no mejor. COLT ROSARIO PA-C Jan 22, 2019 17:28
== END 2019-01-22 17:50 | disposition home or self-care (01) ==
LOC: FTE 14:28
DX: R11.2 Nausea with vomiting, unspecified (principal); R51 Headache
CPT/HCPCS: 36415; 80053; 81001; 81025; 83690; 85025; 96361; 96374; 96375; J1885; J2405; J2765; J7030; Z7502; Z7610; 81003

== ENCOUNTER 2019-01-23 10:55 | Emergency (ER) | payer MEDICAID ==
[~2019-01-23] VITALS: Ht 157.5 cm; Wt 58.2 kg
[~2019-01-23 10:55] MED LIST changes: +BUTA1CAP38 PO; +IBUP-1542 PO; +METO10TA92 PO
[2019-01-23 10:57] VITALS: Ht 157.5 cm; Wt 58.2 kg
[2019-01-23] MEDS ORDERED: DIPHENHYDRAMINE 50 MG INJ IV STA (11:16)
[2019-01-23] MEDS ORDERED: PROCHLORPERAZINE 10 MG INJ IV STA (11:16)
[2019-01-23] MEDS ORDERED: SOD CHLORIDE 0.9% 1,000 ML IV STA (11:16)
[2019-01-23] MEDS ORDERED: KETOROLAC 30 MG INJ IV STA (11:16)
[2019-01-23] MEDS ORDERED: LORAZEPAM 2 MG INJ IV ONE (11:30)
--- NOTE | 2019-01-23 12:57 | ERD ---
ER Documentation Chief Complaint Chief Complaint HEADACHE X2 DAYS, NAUSEA HPI 34-year-old female is here with headache. She was seen here yesterday for the same. She has nausea but no vomiting. She has photosensitivity. No trauma. No fever. No chest pain or palpitations. Pain is gradual in onset bilateral frontal radiating backwards throbbing in nature. ROS All systems reviewed and are negative except as per history of present illness. Medications Home Meds Active Scripts Ibuprofen* (Motrin*) 600 Mg Tab, 600 MG PO Q6H PRN for PAIN AND OR ELEVATED TEMP, #30 TAB Prov:VIKKIAVOSIANCOLT PA-C 01/22/19 Bxnwjgnntd-Rrgqrvhhzuren-Jzejfusv* (Fioricet*) 50-300-40 Mg Capsule, 1 CAP PO Q4H PRN for HEADACHE, #14 CAP Prov:COLT ROSARIO PA-C 01/22/19 Metoclopramide* (Reglan*) 10 Mg Tablet, 10 MG PO Q6 PRN for NAUSEA AND/OR VOMITING, #10 TAB Prov:LEMUELANCOLT PA-C 01/22/19 Acetaminophen* (Tylophen*) 500 Mg Capsule, 2 CAP PO Q8H PRN for PAIN AND OR ELEVATED TEMP, #20 CAP Prov:YUE SCHUSTER NP 11/20/18 Ondansetron Hcl* (Zofran*) 4 Mg Tablet, 4 MG PO Q6H for NAUSEA AND/OR VOMITING, #30 TAB Prov:YUE SCHUSTER V [employer] 11/20/18 Allergies Allergies: Coded Allergies: No Known Drug Allergy (Verified Allergy, Unknown, 11/19/18) PMhx/Soc Medical and Surgical Hx: pt denies Medical Hx, pt denies Surgical Hx History of Surgery: No Anesthesia Reaction: No Hx Neurological Disorder: No Hx Respiratory Disorders: No Hx Cardiac Disorders: No Hx Psychiatric Problems: No Hx Miscellaneous Medical Probl: No Hx Alcohol Use: Yes (socially) Hx Substance Use: No Hx Tobacco Use: No Smoking Status: Never smoker FmHx Family History: No diabetes Physical Exam Vitals Vital Signs Date Temp Pulse Resp B/P (MAP) Pulse Ox O2 O2 Flow FiO2 Time Delivery Rate 01/23/19 98.9 86 17 123/65 99 10:57 (84) Physical Exam INITIAL VITAL SIGNS: Reviewed by me GENERAL: Awake, alert and oriented x 4, well appearing, nontoxic, speaking in full sentences. No acute distress HEAD: Atraumatic NECK: Supple. No masses. Full range of motion. No meningismus. No midline tenderness. EYES: EOMI. PERRL. EAR: No tenderness over the mastoids bilaterally. No exudates in the canals. TMs nonerythematous. RESPIRATORY: Clear to auscultation bilaterally. Symmetric chest wall rise. No wheezing or rales. No accessory muscle use. CV: Regular rate and rhythm. No murmurs, rubs, or gallops. Neuro: M/S: Alert and oriented Face: EOMI, face and pharynx with normal sensation and function Motor: Normal strength throughout Sensation: Normal sensation throughout Speech: Normal Cerebel: Normal coordination Normal gait Normal finger to nose Results 24 hrs Laboratory Tests Test 01/23/19 11:35 POC Beta HCG, Qualitative NEGATIVE Current Medications Medications Dose Sig/Amanda Start Time Status Last (Trade) Ordered Route PRN Stop Time Admin Dose Reason Admin Sodium 1,000 ml @ Q1H STAT 01/23/19 DC 01/23/19 Chloride 1,000 mls/hr IV 11:16 01/23/19 11:41 12:15 10 mg ONCE STAT 01/23/19 DC 01/23/19 Prochlorperaz IV 11:16 01/23/19 11:47 ine 11:18 (Compazine Inj) Ketorolac 30 mg ONCE STAT 01/23/19 DC 01/23/19 Tromethamine IV 11:16 01/23/19 11:44 (Toradol) 11:18 12.5 mg ONCE STAT 01/23/19 DC 01/23/19 Diphenhydrami IV 11:16 01/23/19 11:43 ne HCl 11:18 (Benadryl) Lorazepam 0.5 mg ONCE ONCE 01/23/19 DC 01/23/19 (Ativan) IV 11:30 01/23/19 11:46 11:31 Procedures/MDM The differential diagnosis includes but is not limited to subdural hematoma, epidural hematoma, intracerebral hemorrhage, occult trauma, CVA, meningitis, encephalitis, hypertension, tension, migraine, cluster, cervical spine disease, and others. I reviewed the note from yesterday and labs from yesterday which were normal. Therefore did not repeat labs but I did order a CT scan which was negative. Patient felt much better after IV fluids and headache cocktail. Patient counseled regarding my diagnostic impression and care plan. Prior to discharge all questions answered. Pt agrees with treatment plan and understands strict return precautions. Pt is instructed to follow up with primary care provider within 24-48 hours. Precautionary instructions provided including instructions to return to the ER if not improving or for any worsening or changing symptoms or concerns. Departure Diagnosis: Primary Impression: Headache Condition: Stable Patient Instructions: Self-Care for Headaches Additional Instructions: Llame al doctor MARY y dinorah angelo JANET PARA DENTRO DE 1-2 FARLEY.Dgale a la secretaria que nosotros le instruimos hacer esta janet.Avise o llame si maurice condicin se empeora antes de la janet. Regresa aqui si peor o no mejor. AMIE GONZALEZ PA-C Jan 23, 2019 12:57
[2019-01-23 13:16] VITALS: BP 101/60; PULSE 60; RESP 18
== END 2019-01-23 13:17 | disposition home or self-care (01) ==
LOC: FTE 10:55
DX: R51 Headache (principal)
CPT/HCPCS: 70450; 81025; 96361; 96374; 96375; J0780; J1200; J1885; J2060; J7030; Z7502